=== PATIENT | female | born 1960 | race Caucasian/White ===

== ENCOUNTER 2019-03-17 15:58 | Emergency (ER) | payer OTHER ==
[2019-03-17 16:26] VITALS: BP 145/85
--- NOTE | 2019-03-17 17:04 | UC ---
Skin Complaint HPI - HPI Summary HPI Summary: 58 year old female with no lyme disease history, no known tick bites, but has seen multiple ticks crawling on her presents with rashed on abdomen, lower legs. last week + fever, chills, ill feeling, has resolved. mild headache. no chest pain. - History of Current Complaint Chief Complaint: UCRas Time Seen by Provider: 03/17/19 16:53 Stated Complaint: TICK BITE Hx Obtained From: Patient ?: No Onset/Duration: Sudden Onset, Lasting Days Skin Exposure Onset/Duration: Days Ago Timing: Constant Current Severity: None Pain Intensity: 0 Pain Scale Used: 0-10 Numeric Location: Diffuse - abdomen, lower legs - Allergy/Home Medications Allergies/Adverse Reactions: Allergies Allergy/AdvReac Type Severity Reaction Status Date / Time No Known Allergies Allergy Verified 03/17/19 16:26 Home Medications: Home Medications Cosepf 1 drop BOTH EYES BID 03/17/19 [History Confirmed 03/17/19] PMH/Surg Hx/FS Hx/Imm Hx Previously Healthy: Yes - Surgical History Surgical History: Yes Surgery Procedure, Year, and Place: right wrist 2017 - Family History Known Family History: Positive: Non-Contributory - Social History Alcohol Use: Rare Substance Use Type: None Smoking Status (MU): Former Smoker When Did the Patient Quit Smoking/Using Tobacco: 1995 Review of Systems All Other Systems Reviewed And Are Negative: Yes Constitutional: Positive: Fever - last week, resolved Skin: Positive: Rash Eyes: Positive: Negative Is Patient Immunocompromised?: No Physical Exam Triage Information Reviewed: Yes Appearance: Well-Appearing, No Pain Distress, Well-Nourished Vital Signs: Initial Vital Signs Temp 99.2 F 03/17/19 16:21 Pulse 71 03/17/19 16:21 Resp 12 03/17/19 16:21 BP 145/85 03/17/19 16:21 Pulse Ox 98 03/17/19 16:21 Eye Exam: Normal Eyes: Positive: Conjunctiva Clear Respiratory: Positive: Chest non-tender, Lungs clear, Normal breath sounds, No respiratory distress, No accessory muscle use Cardiovascular: Positive: RRR, No Murmur Musculoskeletal Exam: Normal Neurological Exam: Normal Psychological Exam: Normal Skin: Positive: Other - non-raised erythematous lesions with central clearing consistent with lyme disase erythema migrans over abdomen x 2 Course/Dx - Course Course Of Treatment: clinical presentation for lyme disease/ erythema migrans. doxy treatment x 14 days, follow up with primary care, care connections info given - Differential Diagnoses - Skin Complaint Differential Diagnoses: Angioedema, Drug Rash, Erythema Nodosum, Erythema Multiforme, Lymphangitis, Viral Exanthem - Diagnoses Provider Diagnosis: Erythema migrans (Lyme disease) Discharge - Sign-Out/Discharge Documenting (check all that apply): Patient Departure All imaging exams completed and their final reports reviewed: No Studies - Discharge Plan Condition: Good Disposition: HOME Prescriptions: DOXYcycline CAP(*) [DOXYcycline 100MG CAP(*)] 100 mg PO BID #28 cap Patient Education Materials: Lyme Disease (ED) Referrals: No Primary Care Phys,NOPCP [Primary Care Provider] - Additional Instructions: - Doxycycline x 14 days, twice daily for treatment - Care connections to establish PCP - Increase fluid intake - Go to ER with increased pain, chest pain, joint pains, increased headache - Billing Disposition and Condition Condition: GOOD Disposition: Home
== END 2019-03-17 17:15 | disposition home or self-care (01) ==
LOC: UCEAST 15:58
DX: A26.0 Cutaneous erysipeloid (principal); Z87.891 Personal history of nicotine dependence
CPT/HCPCS: 99212; G0463